=== PATIENT | male | born 1990 | race American Indian/Alaskan Native ===

== ENCOUNTER 2017-07-26 01:30 | Emergency (ER) | payer SELFPAY | END 2017-07-26 02:20 | disposition left against medical advice (07) | LOC: ED 01:30 | DX: R21 Rash and other nonspecific skin eruption (principal); Z53.21 Procedure and treatment not carried out due to patient leaving prior to being seen by health care provider ==

== ENCOUNTER 2018-12-11 15:18 | Emergency (ER) | payer OTHER ==
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
[2018-12-11 16:08] VITALS: BP 130/89
[2018-12-11] MEDS ORDERED: TORADOL IM ONE (18:17)
[2018-12-11] MEDS ORDERED: ZOFRAN ODT PO ONE (18:18)
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
--- NOTE | 2018-12-11 18:21 | XRay Report ---
PROCEDURE: XR SHOULDER 2+V LT TECHNIQUE: Left shoulder 3 views HISTORY: pain COMPARISONS: FINDINGS: No fracture identified. No dislocation seen. Joint spaces are unremarkable. Adjacent bony and soft ti ssue structures are unremarkable. IMPRESSION: Negative shoulder series This document is electronically signed by Ector Ward MD., December 11 2018 06:19:43 PM ET
--- NOTE | 2018-12-11 18:22 | XRay Report ---
PROCEDURE: XR SPINE LUMBOSACRAL 2-3V TECHNIQUE: Lumbar spine 2 views HISTORY: pain COMPARISONS: FINDINGS: Vertebral bodies demonstrate normal height and alignment. Disc spaces are within normal limits. Facet joints demonstrate normal alignment. Transverse and spinous processes appear intact. SI joints are u nremarkable. IMPRESSION: Negative lumbar spine series. This document is electronically signed by Ector Ward MD., December 11 2018 06:20:49 PM ET
--- NOTE | 2018-12-11 18:30 | XRay Report ---
PROCEDURE: XR SPINE CERVICAL 2-3V TECHNIQUE: 3 views of the cervical spine HISTORY: pain COMPARISONS: FINDINGS: Vertebral bodies demonstrate normal height and alignment. Disc spaces are within normal limits. Spino us processes are intact. Facet joints demonstrate normal alignment IMPRESSION: Negative cervical spine series. This document is electronically signed by Ector Ward MD., December 11 2018 06:28:11 PM ET
== END 2018-12-11 18:50 | disposition home or self-care (01) ==
LOC: ED 15:18
DX: S46.912A Strain of unspecified muscle, fascia and tendon at shoulder and upper arm level, left arm, initial encounter (principal); S16.1XXA Strain of muscle, fascia and tendon at neck level, initial encounter; S39.012A Strain of muscle, fascia and tendon of lower back, initial encounter; Z90.89 Acquired absence of other organs; V89.2XXA Person injured in unspecified motor-vehicle accident, traffic, initial encounter; Y93.89 Activity, other specified; Y92.488 Other paved roadways as the place of occurrence of the external cause; Y99.8 Other external cause status
CPT/HCPCS: 72040; 72100; 73030; 96372; 99283; J1885; Q0162

== ENCOUNTER 2020-06-30 08:03 | Emergency (ER) | payer OTHER | END 2020-06-30 08:18 | LOC: ED 08:03 | DX: F32.9 Major depressive disorder, single episode, unspecified (principal); Z53.21 Procedure and treatment not carried out due to patient leaving prior to being seen by health care provider ==